=== PATIENT | male | born 1945 | race Caucasian/White ===

== ENCOUNTER 2018-10-27 07:13 | Day surgery (SDC) | payer MEDICARE ==
[2018-10-24 09:41] VITALS: BMI 32.1
[~2018-10-27 07:13] MED LIST: HEPARIN SODIUM,PORCINE 5,000 UNIT/ML 1 ML VIAL SQ ONE; HYDROmorphone 0.5 MG/0.5 ML SYRINGE IVP PRN; LACTATED RINGERS 1,000 ML IV SCH; MORPHINE SULFATE 4 MG/ML SYRINGE IV PRN; ceFAZolin IN SWFI 2 GM/20 ML SYRINGE IVP ONE
[2018-10-27] MEDS ORDERED: LIDOCAINE 1% 20 ML VIAL (10MG/ML) FOR IV START INTRADERMA ONE (07:47)
[2018-10-27] MEDS ORDERED: ONDANSETRON 4 MG/2 ML VIAL IVP ONE (08:04)
[2018-10-27] MEDS ORDERED: DEXAMETHASONE SOD PHOSPHATE 10 MG/ML 1 ML VIAL IV ONE (08:04)
[2018-10-27] MEDS ORDERED: MIDAZOLAM (PF) 2 MG/2 ML VIAL IV ONE ×2 (08:14→08:39)
[2018-10-27] MEDS ORDERED: BUPIVACAINE-EPI 0.5%-1:200,000 10 ML VIAL SQ ONE ×2 (08:52→10:16)
[2018-10-27] MEDS ORDERED: NEOSTIGMINE 1 MG/ML 10 ML VIAL ONE (09:45)
[2018-10-27] MEDS ORDERED: SUCCINYLCHOLINE CHLORIDE 100 MG/5 ML SYR IV ONE (09:45)
[2018-10-27] MEDS ORDERED: LIDOCAINE 1% INJ 10MG/ML (20 ML MDV) ONE (09:45)
[2018-10-27] MEDS ORDERED: fentaNYL (PF) 50 MCG/ML 2 ML AMP ONE (09:45)
[2018-10-27] MEDS ORDERED: PROPOFOL 10 MG/ML 20 ML VIAL IV ONE (09:45)
[2018-10-27] MEDS ORDERED: ROCURONIUM BROMIDE 10 MG/ML 10 ML VIAL IV ONE (09:45)
[2018-10-27] MEDS ORDERED: GLYCOPYRROLATE 0.2 MG/ML 2 ML VIAL ONE (09:45)
[2018-10-27] MEDS ORDERED: HYDROmorphone (PF) 1 MG/ML ONE (09:45)
[2018-10-27] MEDS ORDERED: MIDAZOLAM 2 MG/2 ML VIAL ONE (09:45)
[2018-10-27] MEDS ORDERED: LACTATED RINGERS 1,000 ML IV ONE ×3 (10:09→13:50)
[2018-10-27 11:54] VITALS: TEMP 98.7
[2018-10-27] MEDS ORDERED: HYDROcodone/APAP 5-325MG 1 EACH TAB PO PRN (11:56)
[2018-10-27] MEDS ORDERED: NALOXONE 0.4 MG/ML 1 ML VIAL IV PRN (11:56)
--- NOTE | 2018-10-27 12:03 | P.OP ---
Date of Procedure: 10/27/18 Procedure(s) Performed: PREOPERATIVE DIAGNOSIS: Right scrotal hernia POSTOPERATIVE DIAGNOSIS: Same PROCEDURE: Right inguinal hernia repair with mesh SURGEON: Hu EBL: Minimal ANESTHESIA: General COMPLICATIONS: None OPERATIVE PROCEDURE: Patient was placed in the operating table in the supine position and placed under general anesthesia. An oblique incision was made in the right groin. Dissection down through the subcutaneous tissues took place using electrocautery. The external oblique fascia was incised using a scalpel. This opening was lengthened using the Metzenbaum scissors. The spermatic cord was encircled with a [place] drain. The structures were identified and preserved. Careful dissection revealed an large indirect hernia sac. This was carefully dissected back to the internal inguinal ring where it was ligated using 3 separate 0 silk stick tie sutures. A 3" x 6" Prolene mesh was cut to fit on the exposed fascia. This was sutured to the pubic tubercle the folding edge of the inguinal ligament and the conjoined tendon using interrupted 2-0 Nurolon sutures. A slit was created in the mesh and the mesh was wrapped around the spermatic cord and sutured back to itself. The external oblique was then reapproximated using a running 2-0 Vicryl suture. The subcutaneous tissues were reapproximated using a 3-0 Vicryl sutures. The skin was closed using 4-0 Monocryl sutures. Skin glue was then applied. DISPOSITION: Stable to recovery room
[2018-10-27 12:46] VITALS: RESP 18
[2018-10-27 15:06] VITALS: BP 165/92; PULSE 79
== END 2018-10-27 14:53 | disposition home or self-care (01) ==
LOC: OR 07:13
PROVIDERS: ATTEND Surgery
DX: K40.90 Unilateral inguinal hernia, without obstruction or gangrene, not specified as recurrent (principal); Z79.891 Long term (current) use of opiate analgesic; I10 Essential (primary) hypertension; E78.5 Hyperlipidemia, unspecified; Z79.899 Other long term (current) drug therapy
CPT/HCPCS: 88302; 49505; C1781; J2250 ×2; J1644; J1100; J2710; J2405; J2001; J3010; J1170; J0330; J2704; J0690

== ENCOUNTER → 2020-07-09 | Outpatient (CLI) | payer MEDICARE ==
--- NOTE | 2020-07-09 18:40 | US ---
EXAMINATION TYPE: US thyroid st tissue head/neck DATE OF EXAM: 07/09/2020 COMPARISON: NONE CLINICAL HISTORY: 75-year-old male R94.6 ABN THYROID LABS. TECHNIQUE: Multiple sonographic images of the thyroid gland are obtained. FINDINGS: GLAND SIZE: Right Lobe: 5.9 x 2.1 x 1.6 cm Overall Parenchyma: homogenous Left Lobe: 5.1 x 2.0 x 1.6 cm Overall Parenchyma: homogeneous Isthmus Thickness: .4 cm NODULES RIGHT: # of nodules measured on right: 0 LEFT: # of nodules measured on left: 0 ISTHMUS: # of nodules measured in the isthmus: 0 Bilateral neck scanned, no evidence of lymphadenopathy. IMPRESSION: Mild thyromegaly. No discrete nodule.
== END | disposition home or self-care (01) ==
LOC: RADUSWWP 15:20
PROVIDERS: ATTEND Internal Medicine
DX: E01.0 Iodine-deficiency related diffuse (endemic) goiter (principal)
CPT/HCPCS: 76536

== ENCOUNTER 2020-10-07 14:56 | Emergency (ER) | payer MEDICARE ==
[2020-10-07] MEDS ORDERED: ACETAMINOPHEN TAB 500 MG TAB PO STA (18:37)
--- NOTE | 2020-10-07 18:40 | ED ---
General Adult HPI - General Chief complaint: Upper Respiratory Infection Stated complaint: BAM Time Seen by Provider: 10/07/20 18:10 Source: patient, RN notes reviewed Mode of arrival: ambulatory Limitations: no limitations - History of Present Illness Initial comments: Patient is a pleasant 75-year-old male presenting to the emergency department from primary care physician. Requested infusion of BAM. Patient had onset of symptoms 5 days ago. Patient was tested positive yesterday for covid. Patient has had fever chills sweats and muscle aches. Patient has been shaky and not sleeping well. Decreased appetite. Patient does have cough. Symptoms actually seem to be improving a little bit. No dyspnea. No vomiting. - Related Data Home Medications Medication Instructions Recorded Confirmed ALPRAZolam [Xanax] 0.25 mg PO BID PRN 10/24/18 10/27/18 Aspirin 81 mg PO DAILY 10/24/18 10/27/18 HYDROcodone/APAP 10-325MG [[place] 1 tab PO Q4H PRN 10/24/18 10/27/18 10-325] Multivitamins, Thera [Multivitamin 1 tab PO DAILY 10/24/18 10/27/18 (formulary)] Pravastatin Sodium [Pravachol] 20 mg PO DAILY 10/24/18 10/27/18 lisinopriL [Zestril] 20 mg PO DAILY 10/24/18 10/27/18 Allergies Allergy/AdvReac Type Severity Reaction Status Date / Time No Known Allergies Allergy Verified 10/07/20 17:44 Review of Systems ROS Statement: Those systems with pertinent positive or pertinent negative responses have been documented in the HPI. ROS Other: All systems not noted in ROS Statement are negative. Constitutional: Reports: fever, chills Eyes: Denies: eye pain ENT: Denies: ear pain Respiratory: Reports: cough. Denies: dyspnea Cardiovascular: Denies: chest pain Endocrine: Denies: fatigue Gastrointestinal: Denies: abdominal pain Genitourinary: Denies: dysuria Musculoskeletal: Denies: back pain Skin: Denies: rash Neurological: Denies: weakness Past Medical History Past Medical History: Hyperlipidemia, Hypertension, Osteoarthritis (OA) Additional Past Medical History / Comment(s): BACK PAIN, History of Any Multi-Drug Resistant Organisms: None Reported Past Surgical History: Tonsillectomy Past Anesthesia/Blood Transfusion Reactions: No Reported Reaction Past Psychological History: Anxiety Smoking Status: Former smoker Past Alcohol Use History: Rare Past Drug Use History: None Reported - Past Family History Father Family Medical History: Cancer Additional Family Medical History / Comment(s): LUNG CANCER Brother(s) Family Medical History: Cancer General Exam Limitations: no limitations General appearance: alert, in no apparent distress Head exam: Present: normocephalic Eye exam: Present: normal appearance Neck exam: Present: normal inspection Respiratory exam: Present: rhonchi Cardiovascular Exam: Present: regular rate, normal rhythm GI/Abdominal exam: Present: soft. Absent: tenderness Extremities exam: Present: normal inspection Neurological exam: Present: alert Psychiatric exam: Present: normal affect, normal mood Skin exam: Present: normal color Course Vital Signs 10/07/20 10/07/20 17:42 18:32 Temperature 99.4 F Pulse Rate 104 H Respiratory 22 18 Rate Blood Pressure 145/76 O2 Sat by Pulse 96 Oximetry Medical Decision Making - Medical Decision Making I do agree with primary care physician plan. Patient will receive transfusion followed by discharge and observation.. Disposition Clinical Impression: COVID-19 Disposition: HOME SELF-CARE Condition: Stable Instructions (If sedation given, give patient instructions): Upper Respiratory Infection (ED), Fever in Adults (ED) Additional Instructions: Please do follow-up with primary care physician in the next day or 2 for recheck. Continue self quarantined for a total of 10 days following onset of symptoms and 24 hours fever free. [id number] vitamin C, vitamin D, and zinc. Return for difficulty breathing, not tolerating fluids, worsening or changing symptoms or other concerns. Is patient prescribed a controlled substance at d/c from ED?: No Referrals: Katy Childs MD [Primary Care Provider] - 1-2 days Time of Disposition: 18:40
[2020-10-07 19:27] LABS: Basophils % (A) 0 %; Eosinophils % (A) 0 %; HCT 42.4 % (39.0-53.0); HGB 14.6 gm/dL (13.0-17.5); Lymphocytes # (A) 0.2 k/uL (1.0-4.8); Lymphocytes % (A) 7 %; MCH 32.3 pg (25.0-35.0); MCHC 34.5 g/dL (31.0-37.0); MCV 93.6 fL (80.0-100.0); Mean Platelet Volume 7.3; Monocytes # (A) 0.2 k/uL (0-1.0); Monocytes % (A) 6 %; Neutrophils # (A) 3.1 k/uL (1.3-7.7); Neutrophils % (A) 86 %; Platelet Count 136 k/uL (150-450); RBC 4.52 m/uL (4.30-5.90); WBC 3.6 k/uL (3.8-10.6)
[2020-10-07] MEDS ORDERED: BAMLANIVIMAB (EUA) 700 MG, ETESEVIMAB (EUA) 1,400 MG in SODIUM CHLORIDE 0.9% 50 ML IVPB ONE (19:30)
[2020-10-07 19:38] LABS: ALT 25 U/L (4-49); AST 51 U/L (17-59); African American GFR (CKD) >90 (>60 ml/min/1.73 sqM); Albumin 4.6 g/dL (3.5-5.0); Alkaline Phosphatase 53 U/L (38-126); Anion Gap 12 mmol/L; Blood Urea Nitrogen 22 mg/dL (9-20); Calcium 9.6 mg/dL (8.4-10.2); Carbon Dioxide 22 mmol/L (22-30); Chloride 99 mmol/L (98-107); Glucose 165 mg/dL (74-99); LDH 708 U/L (313-618); Magnesium 2.5 mg/dL (1.6-2.3); Non-African American GFR(CKD) 82 (>60 ml/min/1.73 sqM); Potassium 4.6 mmol/L (3.5-5.1); Sodium 133 mmol/L (137-145); Total Bilirubin 1.2 mg/dL (0.2-1.3); Total Protein 7.8 g/dL (6.3-8.2)
[2020-10-07 19:47] LABS: INR 0.9 (<1.2); Partial Thromboplastin Time 25.9 sec (22.0-30.0); Prothrombin Time 9.5 sec (9.0-12.0)
--- NOTE | 2020-10-07 19:48 | XR ---
EXAMINATION TYPE: XR chest 1V portable DATE OF EXAM: 10/07/2020 COMPARISON: NONE HISTORY: Pneumonia. Chest pain TECHNIQUE: Abelardo view FINDINGS: There is slight coarsening of interstitial markings. There is no heart failure. Heart size is fairly normal. There is no pleural effusion. IMPRESSION: Slight increased interstitial markings could relate to mild fibrosis. No heart failure.
[2020-10-07 19:50] LABS: C Reactive Protein 210.7 mg/L (<10.0)
[2020-10-07 20:07] VITALS: BP 163/86; RESP 16
[2020-10-07 22:02] VITALS: PULSE 78; TEMP 98.9
== END 2020-10-07 21:45 | disposition home or self-care (01) ==
LOC: EC 14:56
DX: U07.1 COVID-19 (principal); E78.5 Hyperlipidemia, unspecified; I10 Essential (primary) hypertension; M19.90 Unspecified osteoarthritis, unspecified site; Z79.82 Long term (current) use of aspirin; Z87.891 Personal history of nicotine dependence; F41.9 Anxiety disorder, unspecified
CPT/HCPCS: 36415; 71045; 80053; 82728; 83605; 83615; 83735; 84145; 85025; 85610; 85730; 86140; 96365; 96366; 99283

== ENCOUNTER 2024-11-24 14:05 | Emergency (ER) | payer MEDICARE ==
[2024-11-24 14:15] VITALS: RESP 16
[2024-11-24] MEDS: HYDROmorphone 0.5 MG/0.5 ML SYRINGE IVP STA (14:29)
--- NOTE | 2024-11-24 15:10 | ED ---
General Adult HPI - General Chief complaint: Fall Stated complaint: Fall Time Seen by Provider: 11/24/24 14:19 Source: patient, RN notes reviewed, old records reviewed Mode of arrival: EMS Limitations: no limitations - History of Present Illness Initial comments: 79-year-old male presenting for evaluation of fall from ladder. Patient states he was on an 8 foot ladder near the top attempting to climb onto his roof. He fell landing on his buttocks and low back. He does have history of chronic back pain but states that his pain was significantly worse. No head or neck injury. No loss consciousness. No anticoagulation. Denies extremity injuries. - Related Data Home Medications Medication Instructions Recorded Confirmed ALPRAZolam [Xanax] 0.25 mg PO BID PRN 10/24/18 10/27/18 Aspirin 81 mg PO DAILY 10/24/18 10/27/18 HYDROcodone/APAP 10-325MG [[place] 1 tab PO Q4H PRN 10/24/18 10/27/18 10-325] Multivitamins, Thera [Multivitamin 1 tab PO DAILY 10/24/18 10/27/18 (formulary)] Pravastatin Sodium [Pravachol] 20 mg PO DAILY 10/24/18 10/27/18 lisinopriL [Zestril] 20 mg PO DAILY 10/24/18 10/27/18 Allergies Allergy/AdvReac Type Severity Reaction Status Date / Time No Known Allergies Allergy Verified 10/07/20 17:44 Review of Systems ROS Statement: Those systems with pertinent positive or pertinent negative responses have been documented in the HPI. ROS Other: All systems not noted in ROS Statement are negative. Past Medical History Past Medical History: Hyperlipidemia, Hypertension, Osteoarthritis (OA) Additional Past Medical History / Comment(s): BACK PAIN, History of Any Multi-Drug Resistant Organisms: None Reported Past Surgical History: Tonsillectomy Past Anesthesia/Blood Transfusion Reactions: No Reported Reaction Past Psychological History: Anxiety Smoking Status: Former smoker Past Alcohol Use History: Rare Past Drug Use History: None Reported - Past Family History Father Family Medical History: Cancer Additional Family Medical History / Comment(s): LUNG CANCER Brother(s) Family Medical History: Cancer General Exam Limitations: no limitations General appearance: alert, in no apparent distress Head exam: Present: atraumatic, normocephalic Eye exam: Present: normal appearance, PERRL Neck exam: Present: normal inspection. Absent: tenderness, meningismus Respiratory exam: Present: normal lung sounds bilaterally. Absent: respiratory distress, wheezes Cardiovascular Exam: Present: regular rate, normal rhythm GI/Abdominal exam: Present: soft. Absent: distended, tenderness Extremities exam: Present: normal inspection, full ROM, normal capillary refill. Absent: joint swelling Back exam: Present: paraspinal tenderness, vertebral tenderness (lumbar) Neurological exam: Present: alert, oriented X3 Psychiatric exam: Present: normal affect, normal mood Skin exam: Present: warm, dry, intact. Absent: cyanosis, diaphoretic Course Vital Signs 11/24/24 11/24/24 14:11 15:51 Temperature 97.9 F 98 F Pulse Rate 62 89 Respiratory 16 16 Rate Blood Pressure 174/75 169/82 O2 Sat by Pulse 98 96 Oximetry Medical Decision Making - Medical Decision Making Was pt. sent in by a medical professional or institution (, PA, [facility], urgent care, hospital, or residential...) When possible be specific @ -No Did you speak to anyone other than the patient for history (EMS, parent, family, police, friend...)? What history was obtained from this source @ -No Did you review nursing and triage notes (agree or disagree)? Why? @ -I reviewed and agree with nursing and triage notes Were old charts reviewed (outside hosp., previous admission, EMS record, old EK G, old radiological studies, urgent care reports/EKG's, residential records)? Report findings @ -No old charts were reviewed Differential Diagnosis (chest pain, altered mental status, abdominal pain women, abdominal pain men, vaginal bleeding, weakness, fever, dyspnea, syncope, headache, dizziness, GI bleed, back pain, seizure, CVA, palpatations, mental health, musculoskeletal)? @ -Not applicable EKG interpreted by me (3pts min.). @ -As above X-rays interpreted by me (1pt min.). @ -None done CT interpreted by me (1pt min.). @ -[CT of the lumbar spine and pelvis shows a burst fracture of L1 with severe retropulsion. U/S interpreted by me (1pt. min.). @ -None done What testing was considered but not performed or refused? (CT, X-rays, U/S, labs)? Why? @ -None What meds were considered but not given or refused? Why? @ -None Did you discuss the management of the patient with other professionals (professionals i.e. , PA, [facility], lab, RT, psych nurse, hospital social worker, behavioral health technician, teacher, aoc director combat plans officer, correctional case manager)? Give summary @ -Case discussed with Dr. Newton, requesting transfer as no spinal surgeon available, case discussed with Dr. Hossein [facility] again requesting transfer due to no spinal coverage. Case discussed with Dr. Waqas pool for trauma surgery and for neurosurgery at [facility], who will accept transfer Was smoking cessation discussed for >3mins.? @ -No Was critical care preformed (if so, how long)? @ -yes 35 min Were there social determinants of health that impacted care today? How? (Homelessness, low income, unemployed, alcoholism, drug addiction, transportation, low edu. Level, literacy, decrease access to med. care, care home, rehab)? @ -No Was there de-escalation of care discussed even if they declined (Discuss DNR or withdrawal of care, Hospice)? DNR status @ -No What co-morbidities impacted this encounter? (DM, HTN, Smoking, COPD, CAD, Cancer, CVA, ARF, Chemo, Hep., AIDS, mental health diagnosis, sleep apnea, morbid obesity)? @ -None Was patient admitted / discharged? Hospital course, mention meds given and route, prescriptions, significant lab abnormalities, going to OR and other pertinent info. @ -79 yo male being after fall from approximately 8 feet landing on his buttocks. Patient has vertebral tenderness in the lumbar spine. He had paresthesias to the left great toe and sensory to the lower extremities are grossly intact. Patient is taken for CT of the lumbar pelvis. This shows a burst fracture with retropulsion into the spinal canal. Patient will require spinal or neurosurgery evaluation. Not available at this institution currently. Patient will be transferred to [facility]. Undiagnosed new problem with uncertain prognosis? @ -No Drug Therapy requiring intensive monitoring for toxicity (Heparin, Nitro, Insulin, Cardizem)? @ -No Were any procedures done? @ -No Diagnosis/symptom? @ -L1 burst fracture with retropulsion Acute, or Chronic, or Acute on Chronic? @ -[Acute Uncomplicated (without systemic symptoms) or Complicated (systemic symptoms)? @ -Default Side effects of treatment? @ -No Exacerbation, Progression, or Severe Exacerbation? @ -No Poses a threat to life or bodily function? How? (Chest pain, [place], [place], pneumonia, PE, COPD, DKA, ARF, appy, cholecystitis, CVA, Diverticulitis, Homicidal, Suicidal, threat to staff... and all critical care pts) @ -yes, spinal cord injury - Lab Data Result diagrams: 11/24/24 15:40 11/24/24 15:40 Lab Results 11/24/24 11/24/24 11/24/24 Range/Units 15:40 15:40 15:40 WBC 13.05 H (4.50-10.00) 10*3/uL RBC 4.22 L (4.40-5.60) 10*6/uL Hgb 14.1 (13.0-17.0) g/dL Hct 40.5 (39.6-50.0) % MCV 96.0 (80.0-97.0) fL MCH 33.4 H (27.0-32.0) pg MCHC 34.8 (32.0-37.0) g/dL Plt Count 169 (140-440) 10*3/uL MPV 9.5 (9.5-12.2) fL Immature Gran % (Auto) 0.4 % Neutrophils % 86.0 % Lymphocytes % 6.4 % Monocytes % 7.0 % Eosinophils % 0.0 % Basophils % 0.2 % Immature Gran # 0.05 H (0.00-0.04) 10*3/uL Neutrophils # 11.24 H (1.80-7.70) 10*3/uL Lymphocytes # 0.83 L (0.90-5.00) 10*3/uL Monocytes # 0.91 (0.20-1.00) 10*3/uL Eosinophils # 0.00 L (0.04-0.35) 10*3/uL Basophils # 0.02 (0.00-0.10) 10*3/uL PT 11.1 (10.0-12.5) sec INR 1.0 (<1.2) APTT 22.0 (22.0-30.0) sec Sodium 138 (137-145) mmol/L Potassium 4.2 (3.5-5.1) mmol/L Chloride 107 (98-107) mmol/L Carbon Dioxide 25 (22-30) mmol/L Anion Gap 6 mmol/L BUN 28 H (9-20) mg/dL Creatinine 1.11 (0.66-1.25) mg/dL Est GFR (CKD-EPI)AfAm 72 (>60 ml/min/1.73 sqM) Est GFR (CKD-EPI)NonAf 63 (>60 ml/min/1.73 sqM) Glucose 128 H (74-99) mg/dL Calcium 9.4 (8.4-10.2) mg/dL Total Bilirubin 1.0 (0.2-1.3) mg/dL AST 39 (17-59) U/L ALT 30 (4-49) U/L Alkaline Phosphatase 61 (38-126) U/L Total Protein 6.9 (6.3-8.2) g/dL Albumin 4.3 (3.5-5.0) g/dL Disposition Clinical Impression: Fall, L1 vertebral fracture, Burst fracture of lumbar vertebra Disposition: OTHER INSTITUTION NOT DEFINED Condition: Stable Is patient prescribed a controlled substance at d/c from ED?: No Referrals: Katy Childs MD [Primary Care Provider] - 1-2 days Time of Disposition: 16:33 - Out of Hospital Transfer - Req. Specs Out of Hospital Transfer - Requested Specifics: Other Emergency Center ([facility])
--- NOTE | 2024-11-24 15:27 | CT ---
EXAMINATION TYPE: CT lumbar spine wo con, CT pelvis wo con DATE OF EXAM: 11/24/2024 2:58 PM COMPARISON: None available.. CLINICAL INDICATION: Male, 79 years old with history of fall from ladder/pain; PHH, low back pain aft er fall TECHNIQUE: Multiple axial images were obtained from the midportion of T11 through the sacroiliac ginger nts. Soft tissue and bone windows in coronal and sagittal planes were obtained and reviewed. 3-D ref ormats of the bones were created on a separate workstation and submitted for review. CT DLP: 1073 (accession [id number]), 437.9 (accession [id number]) mGycm, Automated exposure control for d ose reduction was used. FINDINGS: Lumbar spine: 5 lumbar type vertebral bodies are present for the purposes of this examination. Osseous structures a re demineralized. There is a moderate to severe comminuted burst fracture involving the L1 vertebral body with severe retropulsion causing severe spinal canal stenosis. No additional acute fracture or t raumatic subluxation. There is mild spinal canal narrowing and bilateral neural foraminal narrowing a t L2-L3 secondary to facet arthropathy, ligamentum flavum hypertrophy and mild circumferential disc b ulging. Moderate canal stenosis and moderate to severe bilateral neural foraminal narrowing at L3-L4 secondary to facet arthropathy and circumferential disc bulging. No significant spinal canal stenosis at L4-L5 or L5-S1. Pelvis: Bilateral hips appear intact. Pelvic bones are intact. No acute fracture in the pelvis or bilateral h ips. No large hematoma. Visualized urinary bladder unremarkable. No evidence of retroperitoneal hemat kristine in the partially visualized abdomen. IMPRESSION: Comminuted burst fracture involving L1 vertebral body with moderate to severe vertebral body height l oss and significant posterior retropulsion causing severe spinal canal stenosis. [facility], , 11/24/2024 3:25 PM
[2024-11-24] MEDS: HYDROmorphone 1 MG/ML 1 ML SYRINGE IVP STA (15:34)
[2024-11-24 15:48] LABS: Basophils # (A) 0.02 10*3/uL (0.00-0.10); Basophils % (A) 0.2 %; HCT 40.5 % (39.6-50.0); HGB 14.1 g/dL (13.0-17.0); Lymphocytes # (A) 0.83 10*3/uL (0.90-5.00); Lymphocytes % (A) 6.4 %; MCH 33.4 pg (27.0-32.0); MCHC 34.8 g/dL (32.0-37.0); Mean Platelet Volume 9.5 fL (9.5-12.2); Monocytes # (A) 0.91 10*3/uL (0.20-1.00); Neutrophils # (A) 11.24 10*3/uL (1.80-7.70); Platelet Count 169 10*3/uL (140-440); RBC 4.22 10*6/uL (4.40-5.60); RDW 12.9 % (11.5-14.5); WBC 13.05 10*3/uL (4.50-10.00)
[2024-11-24 15:58] LABS: Prothrombin Time 11.1 sec (10.0-12.5)
[2024-11-24 16:00] LABS: ALT 30 U/L (4-49); AST 39 U/L (17-59); African American GFR (CKD) 72 (>60 ml/min/1.73 sqM); Albumin 4.3 g/dL (3.5-5.0); Alkaline Phosphatase 61 U/L (38-126); Anion Gap 6 mmol/L; Blood Urea Nitrogen 28 mg/dL (9-20); Calcium 9.4 mg/dL (8.4-10.2); Carbon Dioxide 25 mmol/L (22-30); Chloride 107 mmol/L (98-107); Glucose 128 mg/dL (74-99); Non-African American GFR(CKD) 63 (>60 ml/min/1.73 sqM); Potassium 4.2 mmol/L (3.5-5.1); Sodium 138 mmol/L (137-145); Total Protein 6.9 g/dL (6.3-8.2)
[2024-11-24 17:24] VITALS: BP 154/75; PULSE 86; TEMP 98.2
[2024-11-24] MEDS: HYDROmorphone 1 MG/ML 1 ML SYRINGE IM STA (17:32)
== END 2024-11-24 17:41 | disposition other institution (70) ==
LOC: EC 14:05
DX: S32.011A Stable burst fracture of first lumbar vertebra, initial encounter for closed fracture (principal); Z87.891 Personal history of nicotine dependence; W11.XXXA Fall on and from ladder, initial encounter
CPT/HCPCS: 99285; 96374; 96376; 96372; 36415; 80053; 85025; 85610; 85730; 72192; 72131; J1171 ×2

== ENCOUNTER → 2025-01-25 | Outpatient (CLI) | payer MEDICARE ==
--- NOTE | 2025-01-25 07:43 | XR ---
EXAMINATION TYPE: XR thoracic spine 2V, XR lumbar spine with bend/flex DATE OF EXAM: 01/25/2025 7:39 AM COMPARISON: None CLINICAL INDICATION: Male, 79 years old with history of Z98.1 ARTHRODESIS STATUS; PHH, pain TECHNIQUE: XR thoracic spine 2V, XR lumbar spine with bend/flex views of the spine in Frontal, swimme rs and lateral projections. FINDINGS: Fixation hardware in the lower spine appears intact. Chronic Wedge compression deformity of L1 vertebral body with up to 50% height loss remains present. No evidence of acute fracture. There is scattered multilevel disk space narrowing without loss of vertebral body height. There is normal a lignment of the thoracic vertebral bodies. Scattered osteophyte formation along the anterior and late ral aspects of the vertebral bodies. Neural foramen are patent given limitations of this exam. Spinal canal appears patent. IMPRESSION: 1. No acute osseous pathology. 2. [id number] multilevel degeneration changes of the spine. [facility], , 01/25/2025 7:41 AM
== END | disposition home or self-care (01) ==
LOC: RADXRMAIN 07:13
PROVIDERS: ATTEND Physician Assistant
DX: M51.360 Other intervertebral disc degeneration, lumbar region with discogenic back pain only (principal); Z98.1 Arthrodesis status
CPT/HCPCS: 72070; 72114